=== PATIENT | male | born 1955 | race Caucasian/White ===

== ENCOUNTER → 2023-08-21 | Outpatient (CLI) | payer MEDICARE ==
[2023-08-21 15:30] LABS: Basophils # (A) 0.01 X 10*3/uL (0.00-0.10); Basophils % (A) 0.2 %; Eosinophils # (A) 0.12 X 10*3/uL (0.04-0.35); HCT 39.1 % (39.6-50.0); Lymphocytes # (A) 1.64 X 10*3/uL (0.90-5.00); Lymphocytes % (A) 27.2 %; MCH 26.4 pg (27.0-32.0); MCHC 30.7 g/dL (32.0-37.0); MCV 86.1 FL (80.0-97.0); Mean Platelet Volume 9.1 FL (9.5-12.2); Monocytes # (A) 0.98 X 10*3/uL (0.20-1.00); Monocytes % (A) 16.3 %; NRBC Per 100 WBC 0 X 10*3/uL (0.00-0.01); Neutrophils # (A) 3.27 X 10*3/uL (1.80-7.70); Neutrophils % (A) 54.1 %; Platelet Count 355 X 10*3/uL (140-440); RBC 4.54 X 10*6/uL (4.40-5.60); RDW 14.1 % (11.5-14.5); WBC 6.03 X 10*3/uL (4.50-10.00)
[2023-08-21 15:51] LABS: Creatine Kinase 164 U/L (35-257); Rheumatoid Factor, Qnt <15 IU/mL (0-15); Uric Acid 6.8 mg/dL (3.7-8.7)
[2023-08-21 15:52] LABS: ALT 17 U/L (10-49); AST 21 U/L (14-35); Blood Urea Nitrogen 26.4 mg/dL (9.0-27.0); Calcium 9.2 mg/dL (8.7-10.3); Carbon Dioxide 21.3 mmol/L (21.6-31.8); Chloride 104 mmol/L (96-109); Glucose 85 mg/dL (70-110); Potassium 5.1 mmol/L (3.5-5.5); Sodium 137 mmol/L (135-145)
[2023-08-21 17:52] LABS: Erythrocyte Sedimentation Rate 55 mm/Hr (0-20)
[2023-08-21 19:15] LABS: Cyclic Citrull Pep IgG Unit <1.5 U/mL (<=3.9); Cyclic Citrullinated Pep IgG Negative
[2023-08-22 09:36] LABS: HLA B27 NEGATIVE
[2023-08-22 10:30] LABS: Angiotensin-1 Converting Enz. 3 U/L (8-52)
== END | disposition home or self-care (01) ==
LOC: LABWHC1 11:21
PROVIDERS: ATTEND Orthopaedic Surgery
DX: M25.531 Pain in right wrist (principal); M12.831 Other specific arthropathies, not elsewhere classified, right wrist
CPT/HCPCS: 36415; 80048; 82164; 82306; 82550; 84439; 84443; 84450; 84460; 84550; 85025; 85652; 86038; 86140; 86200; 86431; 86812